=== PATIENT | female | born 1980 ===

== ENCOUNTER 2017-09-05 09:13 | Emergency (ER) | payer SELFPAY ==
[2017-09-05 09:23] VITALS: TEMP 97.9
--- NOTE | 2017-09-05 09:49 | ED PDOC ---
Arrival/HPI - General Chief Complaint: Eye Problem Time Seen by Provider: 09/05/17 09:45 Historian: Patient - History of Present Illness Narrative History of Present Illness (Text): 09/05/17 09:46 36 y/o female, no significant pmh, nkda, c/o lt. eye itching and redness x 2 days with no change in vision or pain. Pt. has no painful movement of the eye, no change in vision, no oozing/discharge, no painful movement of the eye, no other medical or psychological complaints. Past Medical History - Provider Review Nursing Documentation Reviewed: Yes - Reproductive Menopause: Yes - Psychiatric Hx Psychophysiologic Disorder: No Hx Substance Use: No - Surgical History Hx Hysterectomy: Yes Family/Social History - Physician Review Nursing Documentation Reviewed: Yes Family/Social History: Unknown Family HX Smoking Status: Never Smoked Hx Alcohol Use: No Hx Substance Use: No Allergies/Home Meds Allergies/Adverse Reactions: Allergies chlorine bleach Allergy (Uncoded 09/05/17 09:18) COUGH Review of Systems - Review of Systems Constitutional: absent: Fatigue, Fevers Eyes: Other (lt. eye itching and redness). absent: Vision Changes ENT: absent: Hearing Changes Respiratory: absent: SOB, Cough Cardiovascular: absent: Chest Pain Gastrointestinal: absent: Abdominal Pain, Nausea, Vomiting Skin: absent: Rash, Pruritis, Skin Lesions Psychiatric: absent: Anxiety, Depression Physical Exam Vital Signs Reviewed: Yes Vital Signs Temp Pulse Resp BP Pulse Ox 09/05/17 09:21 97.9 F 68 16 122/77 95 Temperature: Afebrile Blood Pressure: Normal Pulse: Regular Respiratory Rate: Normal Appearance: Positive for: Well-Appearing, Non-Toxic, Comfortable Pain Distress: None Mental Status: Positive for: Alert and Oriented X 3 - Systems Exam Head: Present: Atraumatic, Normocephalic Pupils: Present: PERRL Extroacular Muscles: Present: EOMI Conjunctiva: Present: Other (Lt. eye conjunctivitis with no oozing or discharge , no visible corneal abrasion or fluorsein strip uptake on the left cornea, no periorbital swelling or painful movement of the eye, no hyphema, bilateral vision 20/25 without correction ) Mouth: Present: Moist Mucous Membranes Neck: Present: Normal Range of Motion Respiratory/Chest: Present: Clear to Auscultation, Good Air Exchange. No: Respiratory Distress, Accessory Muscle Use Cardiovascular: Present: Regular Rate and Rhythm, Normal S1, S2. No: Murmurs Abdomen: No: Tenderness, Distention, Peritoneal Signs Back: Present: Normal Inspection Upper Extremity: Present: Normal Inspection. No: Cyanosis, Edema Lower Extremity: Present: Normal Inspection. No: Edema Neurological: Present: GCS=15, Speech Normal, Motor Func Grossly Intact, Gait Normal, Memory Normal Skin: Present: Warm, Dry, Normal Color. No: Rashes Psychiatric: Present: Alert, Oriented x 3, Normal Insight, Normal Concentration Medical Decision Making ED Course and Treatment: 09/05/17 09:48 -Urine hcg is negative -Discharge home with zyrtec, zaditor, avoid rubbing or touching the eye, follow up with your own pmd and opthalmologist within 2 days, return to the ER for any new or worsening signs or symptoms. - PA / DIE FORGER / Resident Statement MD/ has reviewed & agrees with the documentation as recorded. Disposition/Present on Arrival - Present on Arrival Any Indicators Present on Arrival: No History of DVT/PE: No History of Uncontrolled Diabetes: No Urinary Catheter: No History of Decub. Ulcer: No History Surgical Site Infection Following: None - Disposition Have Diagnosis and Disposition been Completed?: Yes Diagnosis: Allergic conjunctivitis Disposition: HOME/ ROUTINE Disposition Time: 09:49 Patient Plan: Discharge Condition: GOOD Discharge Instructions (ExitCare): Conjunctivitis (Noninfectious Pinkeye) (DC) Additional Instructions: -Discharge home with zyrtec, zaditor, avoid rubbing or touching the eye, follow up with your own pmd and opthalmologist within 2 days, return to the ER for any new or worsening signs or symptoms. Prescriptions: Cetirizine HCl [Zyrtec] 10 mg PO DAILY PRN #10 capsule PRN Reason: Other Ketotifen Fumarate [Zaditor] 1 drop OP TID #1 bot Referrals: Armen Guerra [Staff Provider] - Follow up with primary Forms: WORK NOTE
[2017-09-05 10:41] VITALS: BP 119/79; PULSE 69; RESP 18; O2SAT 99
== END 2017-09-05 10:50 | disposition home or self-care (01) ==
LOC: ED 09:13
DX: H10.12 Acute atopic conjunctivitis, left eye (principal)